=== PATIENT | male | born 2000 | race Caucasian/White ===

== ENCOUNTER 2018-06-22 14:32 | Emergency (ER) | payer SELFPAY ==
[~2018-06-22] VITALS: Ht 172.7 cm; Wt 63.5 kg
[2018-06-22 14:32] VITALS: Ht 172.7 cm; Wt 63.5 kg
[2018-06-22 17:05] VITALS: BP 00/00
== END 2018-06-22 17:03 | disposition expired ==
LOC: ED 14:32 → EDBD 14:32 → ED 17:03
DX: I46.9 Cardiac arrest, cause unspecified (principal)